=== PATIENT | female | born 1945 | race Caucasian/White ===

== ENCOUNTER 2017-11-15 05:59 | Day surgery (SDC) | payer MEDICARE ==
[2017-11-15] MEDS ORDERED: CLINDAMYCIN PHOS/D5W 900MG 900 MG/50 ML BAG IVPB ONE (06:00)
[2017-11-15] MEDS ORDERED: LIDOCAINE 1% MDV (10MG/ML) 20ML VIAL SQ ONE (06:00)
[2017-11-15] MEDS ORDERED: 0.9 % SODIUM CHLORIDE 100ML BAG IV ONE (06:00)
[2017-11-15] MEDS ORDERED: METOCLOPRAMIDE HCL 10 MG/2 ML VIAL IVP ONE (06:00)
[2017-11-15] MEDS ORDERED: PROPOFOL 10 MG/ML VIAL IV ONE (06:00)
[2017-11-15] MEDS ORDERED: HYDROMORPHONE HCL 2 MG/ML VIAL IV ONE (06:00)
[2017-11-15] MEDS ORDERED: EPHEDRINE SULFATE 50 MG/ML ML IV ONE (06:00)
[2017-11-15] MEDS ORDERED: ROCURONIUM BROMIDE 50MG/5ML VIAL IV ONE (06:00)
[2017-11-15] MEDS ORDERED: BUPIVACAINE 0.5% W/EPI MPF 30 ML VIAL IVP ONE (06:00)
[2017-11-15] MEDS ORDERED: ONDANSETRON HCL IV 4 MG/2 ML VIAL IVP ONE (06:00)
[2017-11-15] MEDS ORDERED: SEVOFLURANE 250 ML INH ONE (06:00)
[2017-11-15] MEDS ORDERED: LIDOCAINE 1% W/EPI 1:200,000 MPF 30ML SQ ONE (06:00)
[2017-11-15] MEDS ORDERED: SUCCINYLCHOLINE 20 MG/ML 10ML IVP ONE (06:00)
[2017-11-15] MEDS ORDERED: ACETAMINOPHEN 1,000 MG/100 ML BTL IV ONE (06:00)
--- NOTE | 2017-11-15 12:40 | Operative Note ---
DATE OF SURGERY: 11/15/2017 PREOPERATIVE DIAGNOSIS: Grade 4 rectocele. POSTOPERATIVE DIAGNOSIS: Grade 4 rectocele. OPERATION: Rectocele repair. Surgeon: Jayal Jeff DO Anesthesia: General. COMPLICATIONS: None. Estimated Blood Loss: Minimal. PROCEDURE: The patient was prepped for surgery and brought back to the operative suite. She was placed under general anesthesia. She was sterilely prepped and draped in the dorsal lithotomy position. Two Allis's were used to picker tender the mucosa in the midline. A dilute Marcaine injection was placed along that area and 40 mL was used. An incision was made along the midline. The mucosa was dissected off the fascial area laterally. It was then dissected up superiorly and inferiorly. I used 2-0 Vicryl in a pursestring suture twice to reduce the rectocele. I then used interrupted sutures with a 2-0 Vicryl to reduce the rest of the cystocele. Excess vaginal mucosa was removed, and 2-0 Vicryl was used in a running locking fashion to close the mucosa. Then 1/4-inch packing was then placed to be removed prior to going home. Sponge and instrument counts were correct. The patient was woken from general anesthesia and brought back to recovery room in satisfactory condition. SKINNY
== END 2017-11-15 10:00 | disposition home or self-care (01) ==
LOC: SUR 05:59
PROVIDERS: ATTEND Obstetrics & Gynecology
DX: N81.6 Rectocele (principal); E78.00 Pure hypercholesterolemia, unspecified; I10 Essential (primary) hypertension
CPT/HCPCS: J0330; J2405; J2765; J3490